=== PATIENT | male | born 1965 | race Two or more races ===

== ENCOUNTER 2018-09-29 20:47 | Emergency (ER) | payer MEDICAID ==
[~2018-09-29] VITALS: Ht 190.5 cm; Wt 77.6 kg
[2018-09-29 20:57] VITALS: BP 119/83
[2018-09-29] MEDS ORDERED: PENI250T2 PO (20:59)
[2018-09-29] MEDS ORDERED: NAPR-56 PO (20:59)
== END 2018-09-29 21:21 | disposition home or self-care (01) ==
LOC: ER 20:48
DX: K02.9 Dental caries, unspecified (principal); Z79.899 Other long term (current) drug therapy
CPT/HCPCS: 99283